=== PATIENT | male | born 1990 | race African-American/Black ===

== ENCOUNTER 2018-10-23 13:11 | Emergency (ER) | payer SELFPAY ==
--- NOTE | 2018-10-23 14:46 | RAD ---
4 VIEWS LEFT KNEE: Date: 10/23/18 HISTORY: Status post injury. Pain. COMPARISON: None. FINDINGS: No fracture. No cortical irregularity or periosteal reaction. Joint spaces are preserved. No joint ef fusion. IMPRESSION: Unremarkable 4 views left knee. POS: OFF
== END 2018-10-23 15:00 | disposition home or self-care (01) ==
LOC: ERS 13:11
DX: M25.562 Pain in left knee (principal); Y93.67 Activity, basketball

== ENCOUNTER 2019-11-11 18:40 | Emergency (ER) | payer OTHER, SELFPAY ==
[2019-11-12 15:10] LABS: SARS-CoV-2 MS2 Positive; SARS-CoV-2 N Gene Positive; SARS-CoV-2 S Gene Positive; SARS-CoV-2 orf1ab Positive
== END 2019-11-11 19:29 | disposition home or self-care (01) ==
LOC: ERS 18:40
DX: U07.1 COVID-19 (principal)
CPT/HCPCS: 87635; 99283; U0003

== ENCOUNTER 2019-11-25 14:10 | Emergency (ER) | payer OTHER, SELFPAY ==
[2019-11-26 16:07] LABS: SARS-CoV-2 MS2 Positive; SARS-CoV-2 N Gene Positive; SARS-CoV-2 S Gene Positive; SARS-CoV-2 orf1ab Positive
== END 2019-11-25 15:18 | disposition home or self-care (01) ==
LOC: ERS 14:10
DX: U07.1 COVID-19 (principal)
CPT/HCPCS: 87635; 99283; U0003

== ENCOUNTER 2020-01-21 10:38 | Emergency (ER) | payer SELFPAY ==
[2020-01-21] MEDS ORDERED: Ketorolac Tromethamine 30 MG/ML VIAL ONE (11:11)
[2020-01-21] MEDS ORDERED: Diazepam 5 MG TAB ONE (11:11)
[2020-01-21 11:37] LABS: Bilirubin Negative (Negative); Blood, Urine Negative (Negative); Clarity Clear (Clear); Glucose, Urine (Dipstick) Normal (Negative); Ketone, Urine Negative (Negative); Leukocyte Negative Leu/uL (Negative); Nitrite Negative (Negative); Protein, Urine (Dipstick) 10 mg/dL (Neg-Trace); Specific Gravity, Urine 1.034 (1.002-1.036)
== END 2020-01-21 12:38 | disposition home or self-care (01) ==
LOC: ERS 10:38
DX: M54.6 Pain in thoracic spine (principal); M54.5 Low back pain; X50.3XXA Overexertion from repetitive movements, initial encounter; Y93.67 Activity, basketball
CPT/HCPCS: 81003; 96372; 99283; J1885